=== PATIENT | male | born 1960 | race Caucasian/White ===

== ENCOUNTER 2017-03-28 06:56 | Inpatient (IN) | payer OTHER ==
--- NOTE | ~2017-03-28 | OR ---
Unit #: [id number] #: [id number] Patient: MARY FELTON [id number] [address] [place], [place] [address] [id number] MR#: [id number] NAME: MARY FELTON ROOM: 452 Date of Procedure: 03/28/2017 Admission Date: 03/28/2017 Surgeon: Mario Mancini M.D. : 1960 Attending Physician: Mario Mancini M.D. Primary Care Physician: Kenneth Aquino Jr., M.D. OPERATIVE REPORT PREOPERATIVE DIAGNOSES 1. Left talonavicular and calcaneocuboid joint arthritis secondary to ankylosing spondylitis. 2. Left foot first metatarsophalangeal joint arthritis. 3. Left second and third toe fusions with swan-neck deformities. 4. Symptomatic left fourth claw toe. 5. Symptomatic left bunionette. POSTOPERATIVE DIAGNOSES 1. Left talonavicular and calcaneocuboid joint arthritis secondary to ankylosing spondylitis. 2. Left foot first metatarsophalangeal joint arthritis. 3. Left second and third toe fusions with swan-neck deformities. 4. Symptomatic left fourth claw toe. 5. Symptomatic left bunionette. PROCEDURES PERFORMED 1. Left talonavicular and calcaneocuboid joint fusion (04153). 2. Left first metatarsophalangeal joint fusion (81259). 3. Left second toe osteotomy and proximal interphalangeal joint fusion (00890). 4. Left third toe proximal interphalangeal joint osteotomy and proximal interphalangeal joint fusion (94952). 5. Left fourth toe proximal interphalangeal joint fusion and extensor tendon lengthening (70598, 20818). 6. Left bunionette correction (04358). ASSISTANTS 1. MD Rajinder. 2. KARSON Bryant. ANESTHESIA Popliteal saphenous block and general. INDICATIONS FOR SURGERY The patient is a 57-year-old male with ankylosing spondylitis. He has undergone previous subtalar joint fusion of the left lower extremity. He now has significant foot deformity secondary to forefoot abduction with deformities occurring at the Chopart joint. The patient also has a symptomatic hallux valgus deformity and lesser toe deformities. He will therefore undergo correction of the talonavicular and calcaneocuboid joints with fusion as well as first MTP joint fusion and correction of Unit #: [id number] #: [id number] Patient: MARY FELTON second through fourth toe deformities with bunionette correction, he has failed conservative care. DESCRIPTION OF PROCEDURE The patient was taken to the operating room following popliteal saphenous block. He was placed in a supine position. General anesthetic was induced. The left foot was identified as the correct operative extremity during the time-out procedure. The IV antibiotic protocol was followed. The left leg was then prepped and draped in usual sterile fashion. The leg was exsanguinated and thigh tourniquet inflated to 300 mmHg. A dorsomedial longitudinal incision was made over the talonavicular joint. The subcutaneous tissue was carefully divided. The joint capsule was opened. The joint was exposed with subperiosteal dissection. The power osteotome, curved curettes, and rongeurs were utilized to remove the articular cartilage from both sides of the talonavicular joint. The underlying subchondral bone was feathered with the power osteotome. The previous old sinus tarsi incision was extended distally and the calcaneocuboid joint was exposed with subperiosteal dissection. The joint was distracted with a laminar foundry worker apprentice. The power osteotome, curved curettes, and rongeurs were utilized to remove the articular cartilage from both sides of the calcaneocuboid joint. The underlying subchondral bone was feathered with the power osteotome. Augment platelet derived growth factor was then placed in to the talonavicular and calcaneocuboid fusion sites. The forefoot and midfoot deformities were corrected by adducting the foot and pronating the foot. The talonavicular joint was fixated with an OrthoHelix 5.5 mm diameter cannulated screw placed from distal to proximal. The calcaneocuboid joint was also fixated with a 5.5 mm diameter cannulated screw placed from distal to proximal. This nicely corrected the midfoot deformity. The hindfoot deformity did not need correction as the heel was in 5 degrees of valgus. A medial longitudinal incision was made over the first metatarsophalangeal joint. The subcutaneous tissue was divided. The joint capsule was opened longitudinally, reflected off the first metatarsal head. Baby Hohmann retractors were placed. The microsagittal saw was used to remove the articular cartilage from the first metatarsal head. A 0.062-inch diameter smooth K-wire was then used to make multiple perforations around the periphery of the proximal phalangeal base of the hallux. These perforations were connected with a small hand osteotome and the articular cartilaginous surface was lifted away. The attached cancellous bone was then removed with a rongeur and morselized and placed back into the first metatarsophalangeal joint fusion site. The joint was then positioned appropriately and provisionally pinned with a K-wire. Simulated weightbearing showed proper toe position. An OrthoHelix Mini MaxTorque screw was then placed for interfragmentary compression and fixation of the first MTP joint. This screw was placed from proximal medial to distal lateral. The OrthoHelix first MTP joint plate was then applied dorsally and fixated with multiple nonlocking 4.0 screws placed from dorsal to plantar. There were swan-neck deformities of the second and third toe proximal interphalangeal joints and the joints were fused. Dorsal longitudinal incisions were then made over the second and third toe proximal interphalangeal joints. The extensor tendons were then cut transversely and the microsagittal saw was used to fashion plantar closing wedge Unit #: [id number] #: [id number] Patient: MARY FELTON osteotomies at the proximal interphalangeal joint fusion level. A guide pin was then drilled through the middle of the middle phalanx and out of the tip of the second and third toe. These guide pins were then reversed across the proximal interphalangeal joints to hold the toes in corrected position. A 3.2 mm diameter OrthoHelix Mini MaxTorque screws were then placed over these guide pins and tightened. This corrected both toe deformities well. Due to hyperextension deformity of the third toe metatarsophalangeal joint, and extensor tendon lengthening of the extensor digitorum longus tendon was performed. The extensor digitorum brevis tendon was cut transversely and a dorsal capsular release of the third metatarsophalangeal joint was performed with a knife. The K-wire was then advanced across the third metatarsophalangeal joint into the metatarsal shaft to hold the toe in corrected position. The fourth toe extensor digitorum brevis tendon was cut. The fourth toe extensor digitorum longus tendon was lengthened in a Z-fashion, and a dorsal capsulotomy of the fourth toe metatarsophalangeal joint was then performed. A longitudinal incision was made over the fourth toe proximal interphalangeal joint. The extensor dominique was cut transversely and the joint was exposed. The microsagittal saw was used to remove the articular cartilage from both sides of the proximal interphalangeal joint. A guide pin was then drilled through the middle of the middle phalanx and out of the tip of the fourth toe. It was then reversed across the proximal interphalangeal joint and then into the fourth metatarsal shaft to hold the toe in corrected position. A 3.2 mm diameter OrthoHelix Mini MaxTorque screw was then placed over the guide pin and tightened. Excellent fixation was achieved. A 4 cm lateral longitudinal incision was made over the fifth metatarsophalangeal joint. Subcutaneous tissue was divided. The joint capsule was opened and reflected off the fifth metatarsal head. The microsagittal saw was then used to remove the prominent lateral eminence from the fifth metatarsal head. No osteotomy was required. The wounds were then copiously irrigated. The joint capsules were closed with 2-0 Vicryl [id number] sutures. It should be noted that the talonavicular and calcaneocuboid joints were not irrigated after placement of Infuse. The subcutaneous tissue was closed with 3-0 Vicryl and skin was closed with 3-0 nylon horizontal mattress sutures. Xeroform gauze, dressing, sponges, Webril, and a posterior fiberglass splint were applied. The patient was then transported to the recovery room in stable condition. ESTIMATED BLOOD LOSS None. COMPLICATIONS None. SPECIMENS None. TOURNIQUET TIME 2 hours 16 minutes. Dictated byKolby Mancini M.D. Unit #: [id number] #: [id number] Patient: MARY FELTON RANJEET/dmitri TD: 03/29/2017 08:15 JOB #: [id number] OPERATIVE REPORT Page 1 of 1 X Arias Mancini MD X PROCEDURE OPERATIVE NOTE
--- NOTE | ~2017-03-28 | HP ---
Unit #: [id number] #: [id number] Patient: MARY FELTON [id number] [address] [address] [id number] MR#: [id number] NAME: MARY FELTON ROOM: Age: Sex: M Admission Date: 03/28/2017 : 1960 Attending Physician: Mario Mancini M.D. Primary Care Physician: Kenneth Aquino Jr., M.D. HISTORY AND PHYSICAL CHIEF COMPLAINT Left foot pain. HISTORY OF PRESENT ILLNESS The patient is a 57-year-old male with ankylosing spondylitis, who underwent subtalar joint arthrodesis of the left foot 10 years ago for a flatfoot deformity. The patient states that over the past several years his foot has become more flat and more painful. Radiographs show significant arthritis of the talonavicular joint and calcaneocuboid joint as well as significant talar head uncovering. The patient also has a significant bunion deformity with symptomatic second through fifth hammertoes and a bunionette deformity. The patient is therefore admitted for fusion of the left talonavicular and calcaneocuboid joints, first MTP joint fusion, correction of second through fifth claw-toe deformities and bunionette correction. We will also use Augment platelet derived growth factor for fusion. PAST MEDICAL HISTORY Past history is remarkable for ankylosing spondylitis, allergic rhinitis, anxiety, arthritis. HOME MEDICATIONS Enbrel injection, allergy relief, alprazolam, fenoprofen and epinephrine p.r.n. ALLERGIES Shellfish SOCIAL HISTORY The patient denies illicit drug use. He drinks alcohol socially. He is a nonsmoker. FAMILY HISTORY Crohn disease, hypertension, cardiac disease. PAST SURGICAL HISTORY Left subtalar fusion with correction of second and third claw toes with PIP joint fusion, sinus surgery, knee surgery. PHYSICAL EXAMINATION GENERAL: In general it is a well-developed well-nourished male in no acute distress. HEENT: Pharynx is clear. Unit #: [id number] #: [id number] Patient: AMRY FELTON NECK: Neck is supple, without masses. HEART: Exam reveals a regular sinus rhythm without murmurs or gallops. LUNGS: The lungs are clear. ABDOMEN: The abdomen is soft and nontender, without masses or organomegaly. EXTREMITIES: Evaluation of the left foot demonstrates abduction of the forefoot and 10 degrees of heel valgus. Left ankle dorsiflexion 5 degrees, plantar flexion 40 degrees. Subtalar motion is absent. First MTP joint dorsiflexion is 40 degrees, plantar flexion 30 degrees. The patient has a significant hallux valgus deformity and bunionette deformity. There are cockup deformities of the third and fourth toes. There is a well-healed incision over the dorsolateral midfoot and sinus tarsi. Pulses are intact. Sensation is intact. Motor exam is normal. DIAGNOSTIC STUDIES IMAGING: Standing x-rays of the left ankle are normal and show a congruent tibiotalar joint. The subtalar joint is fused with a longitudinal screw as well as a laterally based plate. The lateral talo-first metatarsal angle is 0 degrees. Medial cuneiform height is -5 mm. Calcaneal pitch is 25 degrees. There is 30% uncovering of the talonavicular joint. ADMITTING DIAGNOSES 1. Left foot ankylosing spondylitis with painful forefoot abduction deformity. 2. Status post left subtalar fusion with retained hardware. 3. Symptomatic left hallux valgus. 4. Left second through fifth claw-toe deformities. 5. Left bunionette. PLAN The patient has failed conservative care. He is therefore admitted for completion of the left foot triple arthrodesis using talonavicular and calcaneal cuboid joints, Augment platelet derived growth factor will be utilized since we cannot use his proximal tibial due to knee arthritis. Additionally the patient will undergo fusion of the first MTP joint with correction of third and fourth toe deformities using K wires. Finally bunionette correction will be obtained with a fifth metatarsal osteotomy. I am not planning on correcting the second and fifth toes unless they appear to be deformed and impinging on the other lesser toes. We may also elect to use Mini MaxTorque screws for definitive claw toe correction. This procedure was described along with risks of bleeding, infection, nerve damage, need for further surgery in the future, prolonged recovery time, deep venous thrombosis, pulmonary embolism, anesthetic complications, nonunion, malunion, need for further surgery in the future to include hardware removal. He understands the above risks and agrees to proceed. Dictated by Mario Mancini M.D. RANJEET/cf TD: 03/27/2017 22:15 Unit #: [id number] #: [id number] Patient: MARY FELTON JOB #: [id number] HISTORY AND PHYSICAL Page 1 of 1 X Arias Mancini MD X HISTORY AND PHYSICAL
[~2017-03-28 06:56] MED LIST: ENBREL50 MG/1 M1 SUBQ; FLONASE 0.05% N16 G1; OMEPRAZOLE40 M1 PO; ULTRAM PO; ZOCOR80 MG PO; [UNRECOGNIZED DRUG - OTHER] PO
[2017-03-28] MEDS ORDERED: ACETAMINOPHEN PO (07:34)
[2017-03-29 03:28] LABS: HEMATOCRIT 39.4 % (38.0-50.0); HEMOGLOBIN 12.8 gm/dL (13.0-16.0)
[2017-03-29] MEDS ORDERED: PERCOCET 5/321 UDTAB PO (17:55)
[2017-03-29] MEDS ORDERED: XARELTO10 MG PO (17:55)
== END 2017-03-29 19:10 | disposition home or self-care (01) | DRG 505 ==
LOC: CSUR 06:56 → CPACUOF 09:08 → CSUR 09:08 → CPACUOF 11:40 → C4B 13:02
PROVIDERS: Orthopaedic Surgery
PROC: 0SGN04Z Fusion of Left Metatarsal-Phalangeal Joint with Internal Fixation Device, Open Approach (ICD-10-PCS; 2017-03-28)
PROC: 0SGN04Z Fusion of Left Metatarsal-Phalangeal Joint with Internal Fixation Device, Open Approach (ICD-10-PCS; 2017-03-28)
PROC: 0SGJ04Z Fusion of Left Tarsal Joint with Internal Fixation Device, Open Approach (ICD-10-PCS; principal; 2017-03-28 09:00)
PROC: 0QSP0ZZ Reposition Left Metatarsal, Open Approach (ICD-10-PCS; 2017-03-28 09:00)
PROC: 0SGN04Z Fusion of Left Metatarsal-Phalangeal Joint with Internal Fixation Device, Open Approach (ICD-10-PCS; 2017-03-28 09:00)
PROC: 0SGN04Z Fusion of Left Metatarsal-Phalangeal Joint with Internal Fixation Device, Open Approach (ICD-10-PCS; 2017-03-28 09:00)
DX: M20.12 Hallux valgus (acquired), left foot (principal); F41.9 Anxiety disorder, unspecified; M13.872 Other specified arthritis, left ankle and foot; J30.9 Allergic rhinitis, unspecified; Z91.013 Allergy to seafood; M20.5X2 Other deformities of toe(s) (acquired), left foot; M21.622 Bunionette of left foot
CPT/HCPCS: 85014; 85018; 94010; 94760; 94761; 97116; 97161; 97530; C1713; C1776; J0690; J1170; J2250; J2270; J2405; J2765; J2795; J3010